=== PATIENT | female | born 1985 | race Caucasian/White ===

== ENCOUNTER 2021-09-27 13:19 | Outpatient (RCR) | payer OTHER, SELFPAY ==
--- NOTE | 2021-09-27 17:33 | PTOPEVAL ---
Thank you for referring Marisol Robles to [facility] [place] The patient is scheduled to be seen for therapy?1 visit every other week for 2-3 visits. Please review, sign, date and return this plan of care IRMA. I agree with and certify that the following plan of care is medically necessary. Referring Physician Date : Attending Provider: Jus Rao MD Problem Diagnosis NTOS- right Onset 05/04/21 Cause unknown Additional Evaluation Detail She works as RN at [employer]. She does not perform a fitness program. She received previous therapy for 1 month, but is not able to perform HEP. Subjective Information She woke with right hand and Query Text:As Reported By Patient/ wrist pain. Denies any injury Family for her pain or symptoms. She c/o hand and finger pain with difficulty straightening her fingers. She received an injection and brace. She has increased pain with lifting or She then put her UE in a sling. She tried rest, but it did not help. She is not working due to UE limitations. C/o her right hand being cold, with progression of numbness of last 2 finger. C/o tenderness of chest muscles. Her left UE is hypersensitive to all touch. She c/o right UE weakness with heaviness. She reports difficulty with fine motor task and writing activities. She increased pain with prolonged sitting and sleeping. Diagnostic Tests X-Rays For This Problem Yes: hand/wrist- normal Pain Assessment Right Arm(s) Reported Pain Level 3 Pain Description Aching,Heavy,Numbness, Radiating,Tingling Pain Frequency Chronic Lowest Pain Intensity 3 Greatest Pain Intensity 7 Pain Aggravating Factors ADL's,Exercise/Activity, Lifting Pain Behaviors Anxious Cervical and Lumbar ROM Cervical ROM Cervical Flexion (0-60) 65 Degrees Cervical Extension (0-70) 80 D
--- NOTE | 2021-10-12 12:57 | PCPTNOTE ---
Patient called & cancelled scheduled appointment this date due to waiting to speak with her social security assessor.
--- NOTE | 2021-11-09 15:26 | PCPTNOTE ---
PHYSICAL THERAPY DISCHARGE NOTE Attending Provider: Jus Rao Patient:Marisol Robles Date of :1985 Patient has not returned for any further treatments since 09/27/21, therefore will be discharged at this time. Patient?s initial visit was on 09/27/2021. Thank you for referring this patient to [facility]. Please review, sign, date and return this discharge summary IRMA. I have been updated about the patient's current status and I agree with discharge from the above service at this time. Referring Physician Date
== END 2021-11-10 08:50 | disposition home or self-care (01) ==
LOC: ANHPT 13:19
DX: G54.0 Brachial plexus disorders (principal)
CPT/HCPCS: 97110; 97162